=== PATIENT | male | born 1955 ===

== ENCOUNTER 2020-06-19 15:34 | Inpatient (IN) | payer MEDICARE, MEDICAID ==
[~2020-06-19] VITALS: Ht 191.8 cm; Wt 80.7 kg
[~2020-06-19 15:34] MED LIST: DIVA-59 PO; DOXE25CA PO; LORA-446 PO; THIA100T67 PO; ZIPR20CA2 PO
[2020-06-19 15:37] VITALS: BP 101/70
[2020-06-19] MEDS ORDERED: DOCUSATE 100 MG CAPSULE PO PRN (16:00)
[2020-06-19] MEDS ORDERED: TRAZODONE 50MG TABLET PO PRN (16:00)
[2020-06-19] MEDS ORDERED: hydrALAzine 20 MG/ML, 1ML IVPush PRN (16:00)
[2020-06-19] MEDS ORDERED: GUAIFENESIN/DM 200-20MG, 10ML UDC PO PRN (16:00)
[2020-06-19] MEDS ORDERED: ONDANSETRON 2MG/ML, 2ML IVPush PRN (16:00)
[2020-06-19] MEDS ORDERED: ACETAMINOPHEN 325 MG TABLET PO PRN (16:00)
[2020-06-19] MEDS ORDERED: PLEASE ENTER HEIGHT AND WEIGHT MC SCH (16:00)
[2020-06-19] MEDS: ENOXAPARIN 40 MG/0.4 ML SQ SCH (16:46)
[2020-06-19] MEDS: CEFTRIAXONE 2 GM in DEXTROSE 5% 50 ML IVPB SCH (16:55)
[2020-06-19 19:31] VITALS: BP 107/75
[2020-06-19] MEDS: PRAMIPEXOLE 0.25MG TABLET PO SCH (20:34)
[2020-06-19] MEDS: DOXEPIN 25 MG CAPSULE PO SCH (20:34)
[2020-06-19] MEDS: SODIUM CHLORIDE FLUSH 10ML SYR IVF SCH (20:35)
[2020-06-20 01:29] VITALS: BP 96/65
[2020-06-20 05:22] LABS: BASOPHILS % (AUTO) 1 % (0-1); EOSINOPHILS % (AUTO) 4 % (1-7); LYMPHOCYTES % (AUTO) 27 % (22-44); MEAN CORPUSCULAR HGB CONC 33.1 g/dL (33.2-36.2); MEAN PLATELET VOLUME 8.1 fL (7.4-10.4); MONOCYTES % (AUTO) 20 % (2-9); NEUTROPHILS % (AUTO) 48 % (42-75); PLATELET COUNT 237 x10^3/uL (130-400); RED BLOOD COUNT 3.96 x10^6/uL (4.38-5.82)
[2020-06-20 05:33] LABS: ANION GAP 2 mmol/L (5-15); CALCIUM 8.9 mg/dL (8.5-10.1); CHLORIDE 102 mmol/L (98-107)
[2020-06-20 05:45] LABS: CREATININE 0.61 mg/dL (0.7-1.3)
[2020-06-20 05:56] LABS: MD SCAN
[2020-06-20] MEDS ORDERED: MAGNESIUM SULFATE PMX 2GM/50ML 50 ML IV ONE (06:30)
[2020-06-20] MEDS: PANTOPRAZOLE 40MG TABLET PO SCH (06:33)
[2020-06-20 08:00] VITALS: BP 112/78
[2020-06-20] MEDS: PRAMIPEXOLE 0.25MG TABLET PO SCH ×2 (08:06→21:56)
[2020-06-20] MEDS: SODIUM CHLORIDE FLUSH 10ML SYR IVF SCH ×2 (08:06→21:57)
[2020-06-20] MEDS: THIAMINE 100MG TABLET PO SCH (08:06)
[2020-06-20] MEDS: AZITHROMYCIN 500 MG TABLET PO SCH (08:07)
[2020-06-20] MEDS: DIVALPROEX 250 MG TABLET.DR PO SCH (08:07)
[2020-06-20] MEDS: LORazepam 1MG TABLET PO PRN (09:14)
[2020-06-20] MEDS ORDERED: CEFTRIAXONE 2 GM in DEXTROSE 5% 50 ML IVPB SCH (11:00)
[2020-06-20] MEDS: ENOXAPARIN 40 MG/0.4 ML SQ SCH (15:21)
[2020-06-20] MEDS: CEFTRIAXONE 2 GM in DEXTROSE 5% 50 ML IVPB SCH (17:46)
[2020-06-20 20:32] VITALS: BP 108/74
[2020-06-20] MEDS: DOXEPIN 25 MG CAPSULE PO SCH (21:56)
[2020-06-20] MEDS: TRAZODONE 50MG TABLET PO PRN (23:27)
[2020-06-21 02:11] VITALS: BP 92/66
[2020-06-21 07:53] VITALS: BP 120/85
[2020-06-21] MEDS: THIAMINE 100MG TABLET PO SCH (07:55)
[2020-06-21] MEDS: PRAMIPEXOLE 0.25MG TABLET PO SCH ×2 (07:55→20:38)
[2020-06-21] MEDS: PANTOPRAZOLE 40MG TABLET PO SCH (07:55)
[2020-06-21] MEDS: AZITHROMYCIN 500 MG TABLET PO SCH (07:55)
[2020-06-21] MEDS: DIVALPROEX 250 MG TABLET.DR PO SCH (07:55)
[2020-06-21] MEDS: SODIUM CHLORIDE FLUSH 10ML SYR IVF SCH ×2 (07:56→20:41)
[2020-06-21] MEDS: LORazepam 1MG TABLET PO PRN (11:40)
[2020-06-21 13:07] VITALS: BP 109/75
[2020-06-21] MEDS: ENOXAPARIN 40 MG/0.4 ML SQ SCH (15:29)
[2020-06-21] MEDS: CEFTRIAXONE 2 GM in DEXTROSE 5% 50 ML IVPB SCH (16:43)
[2020-06-21] MEDS: DOXEPIN 25 MG CAPSULE PO SCH (20:38)
[2020-06-21 21:00] VITALS: BP 96/66
[2020-06-21] MEDS: TRAZODONE 50MG TABLET PO PRN (22:36)
[2020-06-21 23:10] LABS: OCCULT BLOOD NEGATIVE (NEGATIVE)
[2020-06-22 00:27] LABS: CLOSTRIDIUM DIFFICILE ANTIGEN NEGATIVE; CLOSTRIDIUM DIFFICILE TOXIN NEGATIVE (Negative)
[2020-06-22 01:30] VITALS: BP 120/79
[2020-06-22 06:44] VITALS: BP 104/71
[2020-06-22] MEDS: PANTOPRAZOLE 40MG TABLET PO SCH (09:29)
[2020-06-22] MEDS: DIVALPROEX 250 MG TABLET.DR PO SCH (09:30)
[2020-06-22] MEDS: SODIUM CHLORIDE FLUSH 10ML SYR IVF SCH ×2 (09:30→19:57)
[2020-06-22] MEDS: PRAMIPEXOLE 0.25MG TABLET PO SCH ×2 (09:31→19:58)
[2020-06-22] MEDS: THIAMINE 100MG TABLET PO SCH (09:32)
[2020-06-22] MEDS: AZITHROMYCIN 500 MG TABLET PO SCH (09:32)
[2020-06-22 13:51] VITALS: BP 105/72
[2020-06-22 15:54] LABS: BASOPHILS % (AUTO) 1 % (0-1); EOSINOPHILS % (AUTO) 2 % (1-7); LYMPHOCYTES % (AUTO) 23 % (22-44); MEAN CORPUSCULAR HEMOGLOBIN 30.2 pg (27.5-34.5); MEAN CORPUSCULAR HGB CONC 33.3 g/dL (33.2-36.2); MEAN PLATELET VOLUME 8.1 fL (7.4-10.4); MONOCYTES % (AUTO) 17 % (2-9); NEUTROPHILS % (AUTO) 58 % (42-75); PLATELET COUNT 370 x10^3/uL (130-400); RED BLOOD COUNT 4.14 x10^6/uL (4.38-5.82)
[2020-06-22 15:55] LABS: MD NO
[2020-06-22 16:05] LABS: ALANINE AMINOTRANSFERASE 29 U/L (12-78); ALBUMIN 2.9 g/dL (3.4-5.0); ANION GAP 5 mmol/L (5-15); CALCIUM 9.3 mg/dL (8.5-10.1); CHLORIDE 101 mmol/L (98-107); CREATININE 0.69 mg/dL (0.7-1.3)
[2020-06-22 16:08] LABS: ALKALINE PHOSPHATASE 153 U/L (45-117); BILIRUBIN,TOTAL 0.4 mg/dL (0.2-1.0); TOTAL PROTEIN 6.9 g/dL (6.4-8.2)
[2020-06-22] MEDS: CEFTRIAXONE 2 GM in DEXTROSE 5% 50 ML IVPB SCH (17:58)
[2020-06-22] MEDS: ENOXAPARIN 40 MG/0.4 ML SQ SCH (17:58)
[2020-06-22] MEDS: DOXEPIN 25 MG CAPSULE PO SCH (19:58)
[2020-06-22 20:00] VITALS: BP 100/69
[2020-06-22] MEDS ORDERED: ENOXAPARIN 40 MG/0.4 ML SQ ONE (21:00)
[2020-06-22] MEDS: TRAZODONE 50MG TABLET PO PRN (21:40)
[2020-06-22] MEDS ORDERED: OMNIPAQUE 300 MG/ML, 10ML VIAL ONE (23:55)
[2020-06-23 02:55] VITALS: BP 92/56
[2020-06-23 08:40] VITALS: BP 97/58
[2020-06-23] MEDS: DIVALPROEX 250 MG TABLET.DR PO SCH (10:30)
[2020-06-23] MEDS: ENOXAPARIN 80 MG/0.8 ML SQ SCH ×2 (10:30→20:14)
[2020-06-23] MEDS: PANTOPRAZOLE 40MG TABLET PO SCH (10:30)
[2020-06-23] MEDS: THIAMINE 100MG TABLET PO SCH (10:31)
[2020-06-23] MEDS: AZITHROMYCIN 500 MG TABLET PO SCH (10:31)
[2020-06-23] MEDS: PRAMIPEXOLE 0.25MG TABLET PO SCH ×2 (10:31→20:14)
[2020-06-23] MEDS: SODIUM CHLORIDE FLUSH 10ML SYR IVF SCH ×2 (10:32→20:15)
[2020-06-23] MEDS: ZIPRASIDONE 20MG CAPSULE PO PRN ×2 (10:58→23:17)
[2020-06-23] MEDS ORDERED: GADOTERATE 10 MMOL/20ML SYR ONE (12:31)
[2020-06-23 13:18] VITALS: BP 103/69
[2020-06-23 19:54] VITALS: BP 109/73
[2020-06-23] MEDS: DOXEPIN 25 MG CAPSULE PO SCH (20:14)
[2020-06-23] MEDS: TRAZODONE 50MG TABLET PO PRN (23:17)
[2020-06-24 01:31] VITALS: BP 87/51
[2020-06-24 01:53] VITALS: BP 101/64
[2020-06-24] MEDS ORDERED: CYANOCOBALAMIN 1,000 MCG/ML, 1ML IM ONE (07:30)
[2020-06-24 08:33] LABS: BASOPHILS % (AUTO) 1 % (0-1); EOSINOPHILS % (AUTO) 2 % (1-7); LYMPHOCYTES % (AUTO) 27 % (22-44); MEAN CORPUSCULAR HEMOGLOBIN 29.8 pg (27.5-34.5); MEAN CORPUSCULAR HGB CONC 32.6 g/dL (33.2-36.2); MEAN PLATELET VOLUME 7.7 fL (7.4-10.4); MONOCYTES % (AUTO) 13 % (2-9); NEUTROPHILS % (AUTO) 56 % (42-75); PLATELET COUNT 472 x10^3/uL (130-400); RED BLOOD COUNT 4.46 x10^6/uL (4.38-5.82); RED CELL DISTRIBUTION WIDTH 15.9 % (9.4-14.8)
[2020-06-24 08:36] LABS: MD NO
[2020-06-24 08:43] LABS: ANION GAP 4 mmol/L (5-15); CALCIUM 9.6 mg/dL (8.5-10.1); CHLORIDE 102 mmol/L (98-107); CREATININE 0.71 mg/dL (0.7-1.3)
[2020-06-24 08:44] LABS: ALANINE AMINOTRANSFERASE 27 U/L (12-78); ALBUMIN 3.1 g/dL (3.4-5.0)
[2020-06-24 08:46] LABS: ALKALINE PHOSPHATASE 150 U/L (45-117); BILIRUBIN,TOTAL 0.3 mg/dL (0.2-1.0); TOTAL PROTEIN 7.3 g/dL (6.4-8.2)
[2020-06-24] MEDS ORDERED: CYANOCOBALAMIN 1,000 MCG TABLET PO SCH (09:00)
[2020-06-24] MEDS: DIVALPROEX 250 MG TABLET.DR PO SCH (09:04)
[2020-06-24] MEDS: THIAMINE 100MG TABLET PO SCH (09:04)
[2020-06-24] MEDS: ENOXAPARIN 80 MG/0.8 ML SQ SCH (09:04)
[2020-06-24] MEDS: PRAMIPEXOLE 0.25MG TABLET PO SCH (09:04)
[2020-06-24] MEDS: PANTOPRAZOLE 40MG TABLET PO SCH (09:04)
[2020-06-24] MEDS: LORazepam 1MG TABLET PO PRN ×2 (09:08→19:38)
[2020-06-24] MEDS: SODIUM CHLORIDE FLUSH 10ML SYR IVF SCH (09:22)
[2020-06-24 09:24] VITALS: BP 100/68
[2020-06-24] MEDS ORDERED: MAGNESIUM OXIDE 400 MG TABLET PO SCH (11:30)
[2020-06-24] MEDS: ZIPRASIDONE 20MG CAPSULE PO PRN (12:43)
[2020-06-24 13:29] VITALS: BP 102/70
[2020-06-24] MEDS ORDERED: Cyanocobalamin PO (16:57)
[2020-06-24] MEDS ORDERED: APIX5TAB PO (16:57)
[2020-06-24 18:15] VITALS: BP 106/73
[2020-06-24] MEDS ORDERED: APIXABAN 5 MG TABLET PO SCH (21:00)
[2020-07-01] MEDS ORDERED: APIXABAN 5 MG TABLET PO SCH (09:00)
== END 2020-06-24 21:30 | DRG 175 ==
LOC: 4EST 15:34
PROVIDERS: ADMIT Psychiatry & Neurology Psychosomatic Medicine; ATTEND Internal Medicine
DX: I26.99 Other pulmonary embolism without acute cor pulmonale (principal); J96.01 Acute respiratory failure with hypoxia; J18.9 Pneumonia, unspecified organism; E87.3 Alkalosis; H33.20 Serous retinal detachment, unspecified eye; I47.1 Supraventricular tachycardia; D63.8 Anemia in other chronic diseases classified elsewhere; E83.42 Hypomagnesemia; F10.10 Alcohol abuse, uncomplicated; F22 Delusional disorders; G47.00 Insomnia, unspecified; H54.7 Unspecified visual loss; E53.8 Deficiency of other specified B group vitamins; I10 Essential (primary) hypertension; K52.9 Noninfective gastroenteritis and colitis, unspecified; Z83.3 Family history of diabetes mellitus; Z85.038 Personal history of other malignant neoplasm of large intestine; Z85.51 Personal history of malignant neoplasm of bladder; Z86.711 Personal history of pulmonary embolism; Z87.891 Personal history of nicotine dependence; Z93.3 Colostomy status
CPT/HCPCS: 36415; 70553; 71275; 80048; 80053; 82272; 82533; 82607; 82728; 82800; 83540; 83550; 83735; 84100; 84443; 85025; 85379; 87324; 93306; G0378; J0696; J1650; Q9967; A9575; J3420; J3475

== ENCOUNTER 2020-07-26 17:04 | Emergency (ER) | payer MEDICARE, MEDICAID ==
[~2020-07-26] VITALS: Ht 193 cm; Wt 93.2 kg
[~2020-07-26 17:04] MED LIST changes: +APIX5TAB PO; +Cyanocobalamin PO; +DIVA250T PO; +MAGN400T50 PO; +PANT20TA4 PO; +PRAM0.255 PO; +TRAZ150T62 PO
[2020-07-26 17:20] VITALS: BP 129/100
[2020-07-26] MEDS ORDERED: SODIUM CHLORIDE 0.9% 1,000ML IVBOLUS ONE (17:30)
[2020-07-26] MEDS ORDERED: THIAMINE 100 MG in SODIUM CHLORIDE 0.9% 50 ML IVPB ONE (17:30)
[2020-07-26] MEDS ORDERED: SODIUM CHLORIDE FLUSH 10ML SYR IVF ONE (17:30)
[2020-07-26] MEDS ORDERED: ONDANSETRON 2MG/ML, 2ML IVPush ONE (17:30)
[2020-07-26 17:51] LABS: BASOPHILS % (AUTO) 1 % (0-1); EOSINOPHILS % (AUTO) 6 % (1-7); LYMPHOCYTES % (AUTO) 25 % (22-44); MEAN CORPUSCULAR HEMOGLOBIN 29.6 pg (27.5-34.5); MEAN CORPUSCULAR HGB CONC 33.7 g/dL (33.2-36.2); MEAN PLATELET VOLUME 7.4 fL (7.4-10.4); MONOCYTES % (AUTO) 9 % (2-9); NEUTROPHILS % (AUTO) 59 % (42-75); PLATELET COUNT 194 x10^3/uL (130-400); RED BLOOD COUNT 4.41 x10^6/uL (4.38-5.82); RED CELL DISTRIBUTION WIDTH 15.1 % (9.4-14.8)
[2020-07-26 18:10] LABS: ALBUMIN 3.7 g/dL (3.4-5.0); ANION GAP 10 mmol/L (5-15); CALCIUM 9.2 mg/dL (8.5-10.1); CHLORIDE 100 mmol/L (98-107)
[2020-07-26 18:14] LABS: ALANINE AMINOTRANSFERASE 14 U/L (12-78); ALKALINE PHOSPHATASE 167 U/L (45-117); CREATININE 0.75 mg/dL (0.7-1.3); TOTAL PROTEIN 7.5 g/dL (6.4-8.2)
--- NOTE | 2020-07-26 19:26 | NUR ---
ERNP AT BEDSIDE FOR ASSESSMENT. PER ERNP, DO NOT NEED IV AT THIS TIME.
--- NOTE | 2020-07-26 19:31 | NUR ---
SOCIAL WORK TO SEE PT.
[2020-07-26] MEDS ORDERED: THIAMINE 100MG TABLET ONE (19:45)
--- NOTE | 2020-07-26 19:45 | NUR ---
PT PROVIDED URINE SAMPLE. UA COLLECTED AND TAKEN TO LAB.
--- NOTE | 2020-07-26 19:59 | NUR ---
BHU RN AT BEDSIDE FOR ASSESSMENT.
[2020-07-26] MEDS ORDERED: THIAMINE 100MG TABLET PO ONE (20:00)
--- NOTE | 2020-07-26 20:09 | NUR ---
RAPID COVID SWAB COLLECTED AND TAKEN TO LAB WITH PURPLE BHU SLIP.
[2020-07-26 20:11] LABS: AMPHETAMINE SCREEN, URINE Negative (Negative); BARBITURATE SCREEN, URINE Negative (Negative); BENZODIAZEPINE SCREEN, URINE Negative (Negative); CANNABINOID SCREEN, URINE Negative (Negative); COCAINE SCREEN, URINE Negative (Negative); METHADONE SCREEN, URINE Negative (Negative); OPIATE SCREEN, URINE Negative (Negative)
--- NOTE | 2020-07-26 21:19 | NUR ---
REPORT GIVEN TO DAGOBERTO ANTOINE AT [facility]. PT STATES HE HAS BED BUGS. PT ABBY. PTs SUITCASES ARE TOO BIG TO PLACE INTO SEALED BAGS. BAGS TO BE LEFT IN ED ROOM 25 UNTIL PASSENGER CONDUCTOR CAN FIND A WAY TO SEAL BAGS. PT TOOK PERSONAL ITEMS THAT ARE SEALED INTO BAG WITH HIM, INCLUDING UNKNOWN AMOUNT OF ERWIN. PT TRANSPORTED TO [facility] WITH TWO ED TECHS.
== END 2020-07-26 21:20 ==
LOC: ED 20:43
DX: F10.239 Alcohol dependence with withdrawal, unspecified (principal); Z20.822 Contact with and (suspected) exposure to COVID-19; Y90.0 Blood alcohol level of less than 20 mg/100 ml
CPT/HCPCS: 36415; 80053; 80307; 80320; 85025; 87426; 99285; G0480